=== PATIENT | female | born 1970 | race Caucasian/White ===

== ENCOUNTER 2016-07-19 10:36 | Emergency (ER) | payer OTHER | END 2016-07-19 12:05 | disposition home or self-care (01) | LOC: ER1 10:36 | DX: I88.9 Nonspecific lymphadenitis, unspecified (principal); I10 Essential (primary) hypertension; Z90.49 Acquired absence of other specified parts of digestive tract; Z79.899 Other long term (current) drug therapy | CPT/HCPCS: 99283 ==

== ENCOUNTER → 2016-09-01 | Outpatient (CLI) | payer OTHER | LOC: HEART 5 13:20 | DX: J44.9 Chronic obstructive pulmonary disease, unspecified (principal) | CPT/HCPCS: 94060 ==

== ENCOUNTER 2020-10-16 12:04 | Emergency (ER) | payer OTHER ==
[~2020-10-16 12:04] MED LIST: DELSYM30 MG/5 ML PO; FLONASE 0.05% N16 GM; IBUPROFEN600 MG PO; KEFLEX CAP 500500 MG PO; ZOFRAN4 MG PO; ZYRTEC10 MG PO
[2020-10-16 12:45] LABS: HEMOGLOBIN 12.9 gm/dl (12.3-15.3); RED BLOOD COUNT 4.18 M/UL (4.00-5.10); WHITE BLOOD COUNT 5.8 K/UL (4.5-11.0)
[2020-10-16 13:09] LABS: BUN/CREATININE RATIO 10 (0-10)
[2020-10-16] MEDS ORDERED: OMNICEF 300 MG300 MG PO (16:06)
== END 2020-10-16 16:39 | disposition home or self-care (01) ==
LOC: ER1 12:04
PROVIDERS: Family Medicine
DX: N39.0 Urinary tract infection, site not specified (principal); Z90.49 Acquired absence of other specified parts of digestive tract
CPT/HCPCS: 80053; 81001; 82150; 83690; 85025; 87086; 99284; Q9967

== ENCOUNTER 2021-04-03 16:05 | Emergency (ER) | payer OTHER ==
[~2021-04-03 16:05] MED LIST changes: +OMNICEF 300 MG300 MG PO
[2021-04-03 16:35] LABS: HEMOGLOBIN 13.8 gm/dl (12.3-15.3); RED BLOOD COUNT 4.39 M/UL (4.00-5.10); WHITE BLOOD COUNT 8.2 K/UL (4.5-11.0)
[2021-04-03 16:56] LABS: BUN/CREATININE RATIO 11 (0-10)
[2021-04-03] MEDS ORDERED: OMNICEF 300 MG300 MG PO (18:21)
== END 2021-04-03 19:03 | disposition home or self-care (01) ==
LOC: ER1 16:05
PROVIDERS: Emergency Medicine
DX: N39.0 Urinary tract infection, site not specified (principal); Z90.49 Acquired absence of other specified parts of digestive tract; Z88.8 Allergy status to other drugs, medicaments and biological substances
CPT/HCPCS: 80053; 81001; 83690; 85025; 87086; 96374; 96375; 99284; J0696; J2270; J2405; J7030; Q9967

== ENCOUNTER 2021-05-14 15:57 | Emergency (ER) | payer OTHER | END 2021-05-14 17:19 | disposition home or self-care (01) | LOC: ER1 15:57 | DX: S80.02XA Contusion of left knee, initial encounter (principal); S60.211A Contusion of right wrist, initial encounter; W00.0XXA Fall on same level due to ice and snow, initial encounter | CPT/HCPCS: 73110; 73564; 99283 ==

== ENCOUNTER 2021-09-14 14:18 | Emergency (ER) | payer OTHER | END 2021-09-14 15:19 | disposition home or self-care (01) | LOC: ER1 14:18 | DX: S00.33XA Contusion of nose, initial encounter (principal); X58.XXXA Exposure to other specified factors, initial encounter | CPT/HCPCS: 99283 ==

== ENCOUNTER 2021-10-04 13:19 | Emergency (ER) | payer OTHER ==
[2021-10-04] MEDS ORDERED: IBUPROFEN600 MG PO (15:41)
== END 2021-10-04 15:48 | disposition home or self-care (01) ==
LOC: ER1 13:19
DX: S93.402A Sprain of unspecified ligament of left ankle, initial encounter (principal); X50.1XXA Overexertion from prolonged static or awkward postures, initial encounter; Y92.009 Unspecified place in unspecified non-institutional (private) residence as the place of occurrence of the external cause
CPT/HCPCS: 73610; 73630; 99283

== ENCOUNTER 2021-11-17 12:56 | Emergency (ER) | payer OTHER ==
[2021-11-17] MEDS ORDERED: NAPROSYN500 MG PO (14:49)
== END 2021-11-17 15:05 | disposition home or self-care (01) ==
LOC: ER1 12:56
DX: S69.82XA Other specified injuries of left wrist, hand and finger(s), initial encounter (principal); W19.XXXA Unspecified fall, initial encounter; Y92.009 Unspecified place in unspecified non-institutional (private) residence as the place of occurrence of the external cause
CPT/HCPCS: 29125; 73130; 99283

== ENCOUNTER 2021-12-24 14:16 | Emergency (ER) | payer OTHER ==
[~2021-12-24 14:16] MED LIST changes: +NAPROSYN500 MG PO
== END 2021-12-24 16:30 | disposition left against medical advice (07) ==
LOC: ER1 14:16
DX: Z53.21 Procedure and treatment not carried out due to patient leaving prior to being seen by health care provider (principal)